=== PATIENT | female | born 2000 | race Two or more races ===

== ENCOUNTER 2023-10-19 16:12 | Outpatient (AMB) | payer BC, SELFPAY ==
--- NOTE | 2023-10-19 16:14 | MHC.OFFWIV ---
Intake Vital Signs 10/19/23 16:15 Height 5 ft Weight 114 lb BMI 22.3 BP 110/74 Blood Pressure Location Rt brachial Position Sitting Pulse 83 Pulse Source Pulse Oximeter Temp 98.8 F Temp Source Oral Pulse Oximetry (%) 98 Oxygen Delivery Method Room Air Intake Visit Reasons: [employer] WORK[employer] UTI Intake Note: pt here c/o urinary urgency, frequency. Started 2 weeks ago Patient Tobacco Use Status: Current someday Tobacco user Allergies No Known Allergies Allergy (Verified 10/19/23 16:21) Do you need a note to return to daycare/school/sports/work: No HPI HPI Comments History of Present Illness Details patient is a 22-year-old female complaining of 2 weeks of increasing burning with urination, increased frequency of urination, increased urgency of urination. She denies any fevers or blood in her urine. [facility] Social History Patient Tobacco Use Status: Current someday Tobacco user Review of Systems Const All systems reviewed & are unremarkable except as noted in HPI and below Physical Exam Vital Signs: Last Vital Signs Temp 98.8 F 10/19/23 16:15 Pulse 83 10/19/23 16:15 BP 110/74 10/19/23 16:15 Pulse Ox 98 10/19/23 16:15 Oxygen Delivery Method Room Air 10/19/23 16:15 BMI result Body Mass Index 22.3 Const General: cooperative, healthy appearing, comfortable, no acute distress and well developed Orientation/consciousness: patient oriented x3 Limitations: no limitations HEENT Head: Yes normal to inspection Eyes General: appearance normal, both eyes and all related structures Neck Neck: Yes normal visual inspection and Yes full ROM Resp Effort & Inspection: normal respiratory effort and able to speak in complete sentences Skin General skin exam: no rashes or lesions noted Neuro General: patient oriented x3 Extrem General: Yes normal to inspection Results AMB Urinalysis, Automated UA Leukoctes 125 [place]/uL Last Edit by Rakel Carrera CMA on 10/19/23 16:23 UA Nitrite Positive Last Edit by Rakel Carrera CMA on 10/19/23 16:23 UA Urobilinogen 0.2 mg/dL Last Edit by Rakel Carrera CMA on 10/19/23 16:23 UA Protein 0 mg/dL Last Edit by Rakel Carrera CMA on 10/19/23 16:23 UA pH 6.0 Last Edit by Rakel Carrera CMA on 10/19/23 16:23 UA Blood 80 [place]/uL Last Edit by Rakel Carrera CMA on 10/19/23 16:23 UA Specific [place] 1.025 Last Edit by Rakel Carrera CMA on 10/19/23 16:23 UA Ketone Negative Last Edit by Rakel Carrera CMA on 10/19/23 16:23 UA Bilirubin 0 mg/dL Last Edit by Rakel Carrera CMA on 10/19/23 16:23 UA Glucose 0 mg/dL Last Edit by Rakel Carrera CMA on 10/19/23 16:23 Results Reviewed Results Reviewed: Laboratory Last Values Urine pH (Auto) 6.0 10/19/23 16:17 Specific [place] (Auto) 1.025 10/19/23 16:17 Urine Protein (Auto) 0 mg/dL 10/19/23 16:17 Glucose (UA)(Auto) 0 mg/dL 10/19/23 16:17 Urine Ketones (Auto) Negative 10/19/23 16:17 Urine Blood (Auto) 80 Henry/uL 10/19/23 16:17 Urine Nitrite (Auto) Positive 10/19/23 16:17 Urine Bilirubin (Auto) 0 mg/dL 10/19/23 16:17 Urine Urobilinogen (Auto) 0.2 mg/dL 10/19/23 16:17 Leukocyte Esterase (Auto) 125 Sil[place]/uL 10/19/23 16:17 Assessment & Plan Assessment & Plan (1) UTI (urinary tract infection): Code(s): N39.0 - Urinary tract infection, site not specified Qualifiers: Urinary tract infection type: acute cystitis Hematuria presence: with hematuria Qualified Code(s): N30.01 - Acute cystitis with hematuria Plan: sent prescription for Macrobid to pharmacy, gave red flag warning signs and when to seek emergent medical care Plan see above Orders: Orders AMB Urinalysis Automated Today Meghana Vallejo APRN, PHYSICIAN RELATIONS REPRESENTATIVE Z13.9 - Encounter for screening, unspecified Medications: New nitrofurantoin monohyd/m-cryst 100 mg (Macrobid) must administer with a meal/food 100 mg PO Q12H 5 days 10 caps 0RF Meenu Ramila, PA-C Coding Level of Care Code New Pt Level 3 (28360) Diagnoses Acute cystitis with hematuria N30.01 Urinary tract infection type: acute cystitis Hematuria presence: with hematuria
[2023-10-19 16:15] VITALS: BP 110/74; PULSE 83; TEMP 37.1; O2SAT 98; BMI 22.3
== END 2023-10-19 16:49 | disposition home or self-care (01) ==
PROVIDERS: PCP Internal Medicine; Visit Provider Physician Assistant
DX: N30.01 Acute cystitis with hematuria (principal)
CPT/HCPCS: 81003; 99203

== ENCOUNTER 2023-12-09 16:09 | Outpatient (AMB) | payer BC, SELFPAY ==
[2023-12-09 16:11] VITALS: BP 112/66; PULSE 94; TEMP 36.8; O2SAT 97; BMI 22.1
--- NOTE | 2023-12-09 16:11 | AM.OFFWIN_ITS ---
Intake Vital Signs 12/09/23 16:11 Height 5 ft Weight 113 lb BMI 22.1 BP 112/66 Blood Pressure Location Lt brachial Position Sitting Pulse 94 Pulse Source Pulse Oximeter Temp 98.2 F Temp Source Oral Pulse Oximetry (%) 97 Oxygen Delivery Method Room Air Intake Visit Reasons: EP ?UTI Intake Note: Pt presents to the office today for c/o ?UTI. Pt states she was having frequency, and pain. Patient Tobacco Use Status: Current someday Tobacco user Allergies No Known Allergies Allergy (Verified 12/09/23 16:17) HPI EP ?UTI HPI Details This note is constructed using voice recognition software. While every effort has been made to ensure accuracy, [place] soundings group leader errors may have been included. The patient is a 22 year old female who presents to the clinic today with c/o urinary urgency, frequency, and burning for the last 2-3 weeks. She did start increasing her hydration which seemed to improve some of the event symptoms. However they have persisted. She denies fever, chills, back pain. [facility] Social History Patient Tobacco Use Status: Current someday Tobacco user Review of Systems Const All systems reviewed & are unremarkable except as noted in HPI and below Physical Exam Vital Signs: Last Vital Signs Temp 98.2 F 12/09/23 16:11 Pulse 94 12/09/23 16:11 BP 112/66 12/09/23 16:11 Pulse Ox 97 12/09/23 16:11 Oxygen Delivery Method Room Air 12/09/23 16:11 BMI result Body Mass Index 22.1 Const General: cooperative, healthy appearing, comfortable, no acute distress and alert Orientation/consciousness: patient oriented x3 Limitations: no limitations Resp Effort & Inspection: normal respiratory effort and able to speak in complete sentences Auscultation: clear to auscultation bilaterally Cardio Jugular venous distension: no JVD Palpation: normal PMI Rate: regular rate Heart sounds: S1 normal heart sound present, S2 normal heart sound present, no click, no gallops, no murmurs and no rubs General: Yes no CVA tenderness Back/Spine/Pelvis Back: no CVA tenderness Skin General skin exam: no rashes or lesions noted, elasticity normal and turgor normal Neuro General: patient oriented x3 Psych Appearance: grossly normal Mental Status: mental status grossly normal Speech and movement: Normal speech and movement present Affect: normal affect Results AMB Urinalysis, Automated UA Leukoctes 15 Silvino/uL Last Edit by Destiny Chambers CMA on 12/09/23 16:19 UA Nitrite Positive Last Edit by Destiny Chambers, PIETER on 12/09/23 16:19 UA Urobilinogen 0.2 mg/dL Last Edit by Destiny Chambers, PIETER on 12/09/23 16:19 UA Protein 0 mg/dL Last Edit by Destiny Chambers, PIETER on 12/09/23 16:19 UA pH 7.5 Last Edit by Destiny Chambers, PIETER on 12/09/23 16:19 UA Blood 25 Henry/uL Last Edit by Destiny Chambers, PIETER on 12/09/23 16:19 UA Specific [place] 1.010 Last Edit by Destiny Chambers, PIETER on 12/09/23 16:19 UA Ketone Negative Last Edit by Destiny Chambers CMA on 12/09/23 16:19 UA Bilirubin 0 mg/dL Last Edit by Destiny Chambers, PIETER on 12/09/23 16:19 UA Glucose 0 mg/dL Last Edit by Destiny Chambers CMA on 12/09/23 16:19 Results Reviewed Results Reviewed: Laboratory Last Values Urine pH (Auto) 7.5 12/09/23 16:19 Specific [place] (Auto) 1.010 12/09/23 16:19 Urine Protein (Auto) 0 mg/dL 12/09/23 16:19 Glucose (UA)(Auto) 0 mg/dL 12/09/23 16:19 Urine Ketones (Auto) Negative 12/09/23 16:19 Urine Blood (Auto) 25 [place]/uL 12/09/23 16:19 Urine Nitrite (Auto) Positive 12/09/23 16:19 Urine Bilirubin (Auto) 0 mg/dL 12/09/23 16:19 Urine Urobilinogen (Auto) 0.2 mg/dL 12/09/23 16:19 Leukocyte Esterase (Auto) 15 Silv[place]/uL 12/09/23 16:19 Assessment & Plan Assessment & Plan (1) UTI (urinary tract infection): Code(s): N39.0 - Urinary tract infection, site not specified Qualifiers: Urinary tract infection type: acute cystitis Hematuria presence: with hematuria Qualified Code(s): N30.01 - Acute cystitis with hematuria Plan: In office urine suspicious for UTI. Antibiotic sent to requested pharmacy. Advised patient to continue increased hydration. Advised patient to follow up with worsening or failure to resolve. Plan See above for full details and plan. Orders: Orders AMB Urinalysis Automated Today Z13.9 - Encounter for screening, unspecified Medications: Refilled nitrofurantoin monohyd/m-cryst 100 mg (Macrobid) must administer with a meal/food 100 mg PO Q12H 5 days 10 caps 0RF Coding Level of Care Code Est Pt Level 3 (37079) Diagnoses Acute cystitis with hematuria N30.01 Urinary tract infection type: acute cystitis Hematuria presence: with hematuria
== END 2023-12-09 16:43 | disposition home or self-care (01) ==
PROVIDERS: PCP Internal Medicine; Visit Provider Registered Nurse
DX: N30.01 Acute cystitis with hematuria (principal)
CPT/HCPCS: 81003; 99213